=== PATIENT | female | born 1985 | race Caucasian/White ===

== ENCOUNTER 2022-07-01 11:04 | Emergency (ER) | payer OTHER ==
[~2022-07-01] VITALS: Ht 162.5 cm; Wt 95.3 kg
[~2022-07-01 11:04] MED LIST: KEFLEX500 MG PO; MOTRIN800 MG PO; NAPROSYN500 MG PO; PERCOCET 325 MG1 TA2 PO; PRENATAL1 TA1 PO
[2022-07-01] MEDS ORDERED: PEPCID20 MG PO (12:18)
[2022-07-01] MEDS ORDERED: PREDNISONE20 M1 PO (12:18)
== END 2022-07-01 12:33 | disposition home or self-care (01) ==
LOC: ED 11:04
DX: T78.40XA Allergy, unspecified, initial encounter (principal); Z98.890 Other specified postprocedural states; Z98.51 Tubal ligation status; Y92.89 Other specified places as the place of occurrence of the external cause